=== PATIENT | female | born 1990 | race Caucasian/White ===

== ENCOUNTER 2023-05-07 04:12 | Emergency (ER) | payer OTHER ==
[~2023-05-07] VITALS: Ht 165.1 cm; Wt 63.5 kg
[2023-05-07 05:24] VITALS: BP 120/69; TEMP 98.2; O2SAT 100
[2023-05-07] MEDS ORDERED: IBUP-1955 PO (06:54)
== END 2023-05-07 07:03 | disposition home or self-care (01) ==
LOC: ER 04:21
DX: S90.31XA Contusion of right foot, initial encounter (principal); Z79.899 Other long term (current) drug therapy; Z60.2 Problems related to living alone; W22.8XXA Striking against or struck by other objects, initial encounter; Y93.89 Activity, other specified; Y92.89 Other specified places as the place of occurrence of the external cause; Y99.8 Other external cause status
CPT/HCPCS: 73630-TC